=== PATIENT | male | born 1965 ===

== ENCOUNTER 2023-05-09 08:42 | Outpatient (CLI) | payer OTHER, SELFPAY ==
--- NOTE | ~2023-05-09 | MR_ITS ---
EXAMINATION: MRA neck wo con DATE: 05/09/2023 10:29 INDICATION: Vertigo. Headache. Loss of balance. TECHNIQUE: Magnetic resonance angiography (MRA) of the neck was performed without intravenous contras t. COMPARISON: None. FINDINGS: The vertebral arteries are codominant. There is no significant stenosis of the vertebral arteries. Th ere is 0% stenosis of the proximal right internal carotid artery relative to normal distal artery lum en diameter (NASCET criteria). There is 0% stenosis of the proximal left internal carotid artery rel ative to normal distal artery lumen diameter. IMPRESSION: 1. 0% stenosis of the proximal internal carotid arteries relative to normal distal artery lumen diame ters (NASCET criteria). Reviewed, dictated and finalized at location A. IMPRESSION: 1. 0% stenosis of the proximal internal carotid arteries relative to normal dis ramiro artery lumen diameters (NASCET criteria).
--- NOTE | ~2023-05-09 | MR_ITS ---
EXAMINATION: MRA brain wo con DATE: 05/09/2023 09:47 INDICATION: Vertigo. Headache. Loss of balance. TECHNIQUE: Magnetic resonance angiography (MRA) of the brain was performed without intravenous contra st with T1-weighted SPGR by the 3D [id number] technique. Maximum intensity projection 3D-reconstr uctions were obtained. COMPARISON: None. FINDINGS: The vertebral arteries are codominant. There is no significant stenosis of basilar artery or the post erior cerebral arteries. There is no significant stenosis of the intracranial internal carotid arteri es or anterior or middle cerebral arteries. Anterior communicating artery is normal. The posterior co mmunicating arteries are not identified. There is no aneurysm. IMPRESSION: 1. Normal head MRA. Reviewed, dictated and finalized at location A. IMPRESSION: 1. Normal head MRA.
--- NOTE | ~2023-05-09 | MR_ITS ---
EXAMINATION: MR brain/brain stem wo con DATE: 05/09/2023 09:30 INDICATION: Vertigo. Headache. Loss of balance. TECHNIQUE: Magnetic resonance imaging (MRI) of the brain and brainstem was performed without intraven ous contrast. COMPARISON: None. FINDINGS: There are scattered areas of nonspecific increased T2-weighted signal intensity in the cere bral white matter, which is within normal limits for the patient's age. There is no intracranial hemo rrhage, acute infarction, or abnormal intracranial mass lesion. The ventricles are normal in size. Th e internal auditory canals and inner and middle ears are normal. The mastoid air cells are normal. Th ere is mild mucosal thickening in the paranasal sinuses. The orbits are normal. IMPRESSION: 1. Normal aging brain. Reviewed, dictated and finalized at location A. IMPRESSION: 1. Normal aging brain.
== END 2023-05-09 08:43 ==
LOC: MICIMG 08:44
DX: H81.4 Vertigo of central origin (principal)
CPT/HCPCS: 70544; 70547; 70551